=== PATIENT | female | born 1995 | race Two or more races ===

== ENCOUNTER 2024-09-23 23:58 | Emergency (ER) | payer OTHER ==
[~2024-09-23] VITALS: Ht 154.9 cm; Wt 47.6 kg
[2024-09-24] MEDS ORDERED: 0.9 % SODIUM CHLORIDE 1,000 ML IV STA (01:26)
[2024-09-24 01:59] LABS: HEMATOCRIT 33.4 % (36.0-45.00); HEMOGLOBIN 11.4 g/dL (12.0-15.00); MEAN CELL VOLUME 92.2 fL (80.00-100.00); MEAN CORPUSCULAR HEMOGLOBIN 31.5 pg (27.00-32.0); MEAN CORPUSCULAR HGB CONC 34.2 g/dl (32.0-36.0); PLATELET COUNT 221 K/uL (150-450); RED BLOOD COUNT 3.62 M/uL (4.00-6.00); RED CELL DISTRIBUTION WIDTH 13.7 % (11.5-14.5)
[2024-09-24 02:21] LABS: CREATININE SERUM 0.42 mg/dL (0.55-1.02); GFR 179.65; POTASSIUM 3.24 mEq/L (3.5-5.1)
== END 2024-09-24 05:33 | disposition home or self-care (01) ==
LOC: ER 23:59
DX: O20.9 Hemorrhage in early pregnancy, unspecified (principal); Z3A.12 12 weeks gestation of pregnancy

== ENCOUNTER 2025-03-31 13:30 | Inpatient (IN) | payer OTHER ==
[~2025-03-31] VITALS: Ht 154.9 cm; Wt 73.5 kg
[2025-04-05] MEDS ORDERED: PRENATAL MULTI1 EAC3 PO (05:49)
[2025-04-05] MEDS ORDERED: CLARITIN10 M1 (05:49)
[2025-04-05] MEDS ORDERED: CLARITIN10 M1 PO (05:50)
[2025-04-05 06:09] VITALS: BP 137/81
[2025-04-05] MEDS ORDERED: OXYTOCIN 20 UNITS/500ML RL PIGGYBAG IV ONE (06:31)
[2025-04-05 06:37] LABS: URINE APPEARANCE Clear; URINE BILIRRUBIN Negative (NEGATIVE); URINE BLOOD Small; URINE COLOR Yellow; URINE GLUCOSE Negative (NEGATIVE); URINE KETONE Negative (NEGATIVE); URINE LEUKOCYTE Negative; URINE NITRATE Negative; URINE PROTEIN >=1000 (NEGATIVE); URINE UROBILINOGEN 0.2 E.U./dl
[2025-04-05 06:41] LABS: URINE BACTERIA 1748.2 uL (0.0-1933); URINE CAST 3.95 uL (0.0-1.40); URINE EPITHELIAL CELLS 35.5 uL (0.0-38.8); URINE RBC 20.8 uL (0.0-20.8); URINE WBC 39.5 uL (0.0-23.2)
[2025-04-05] MEDS ORDERED: OXYTOCIN 500 ML IV SCH (06:45)
[2025-04-05] MEDS ORDERED: RINGERS SOLUTION,LACTATED 1,000 ML IV SCH (06:45)
[2025-04-05 06:46] LABS: BASO % 0.3 % (0.1-1.2); EOS # 0.55 (0.04-0.54); EOS % 6.1 % (0.7-7.0); LYMPH # 1.47 (1.18-3.74); LYMPH % 16.4 % (19.3-53.1); MEAN PLATELET VOLUME 14.10 fl (9.4-12.4); MONO # 0.79 (0.24-0.82); MONO % 8.8 % (4.7-12.5); NEUT # 6.09 (1.56-6.13); NEUT % 68.1 % (34.0-71.1); RED CELL DISTRIBUTION WIDTH 14.7 % (11.6-14.4)
[2025-04-05 07:08] LABS: INR < 0.93
[2025-04-05 07:24] LABS: ALT/SGPT 22.0 U/L (12-78); AST/SGOT 26.0 U/L (15-37); BILIRUBIN TOTAL 0.16 mg/dL (0.3-1.2); BUN CREA RATIO 21.0 (7.0-25.0); CREATININE SERUM 0.62 mg/dL (0.55-1.02); GFR 114.62; GLOBULINA 3.3 G/DL (2.4-3.5); GLUCOSE FASTING 78.0 mg/dL (65-100); OSMOLALITY SERUM 280.0 MOSM/KG (275-295)
[2025-04-05 07:46] VITALS: BP 144/84
[2025-04-05] MEDS ORDERED: MORPHINE SULFATE 4 MG/ML CARTRIDGE IV STA (08:15)
[2025-04-05 11:47] VITALS: BP 142/75
[2025-04-05 12:25] VITALS: BP 144/79
[2025-04-05 15:38] VITALS: BP 128/72
[2025-04-05] MEDS ORDERED: CHLORHEXIDINE GLUCONATE 120 ML BOTTLE TOP ONE ×2 (17:10→18:15)
[2025-04-05] MEDS ORDERED: ERYTHROMYCIN BASE OPHT 1GM EACH TUBE OP ONE ×2 (17:10→18:15)
[2025-04-05] MEDS ORDERED: OXYTOCIN 20 UNITS/1000ML RL PIGGYBAG IV ONE (17:10)
[2025-04-05] MEDS ORDERED: LIDOCAINE HCL 1% 10ML VIAL ONE (17:11)
[2025-04-05] MEDS ORDERED: ACETAMINOPHEN 500 MG GEL..CAP PO PRN (18:15)
[2025-04-05] MEDS ORDERED: LIDOCAINE HCL 1% 10ML VIAL IJ ONE (18:15)
[2025-04-05] MEDS ORDERED: OXYTOCIN 1,000 ML IV SCH (18:15)
[2025-04-05 22:00] VITALS: BP 145/83
[2025-04-06 02:31] VITALS: BP 135/85
[2025-04-06 06:19] LABS: BASO % 0.2 % (0.1-1.2); EOS # 0.01 (0.04-0.54); EOS % 0.0 % (0.7-7.0); LYMPH # 0.97 (1.18-3.74); LYMPH % 4.6 % (19.3-53.1); MEAN PLATELET VOLUME 14.00 fl (9.4-12.4); MONO # 1.44 (0.24-0.82); MONO % 6.8 % (4.7-12.5); NEUT # 18.56 (1.56-6.13); NEUT % 87.8 % (34.0-71.1); RED CELL DISTRIBUTION WIDTH 14.9 % (11.6-14.4)
[2025-04-06 08:15] VITALS: BP 141/87
[2025-04-06] MEDS ORDERED: HYDROCORTISONE 2.5% 30 GM TUBE RECTAL SCH (09:00)
[2025-04-06] MEDS ORDERED: BENZOCAINE/MENTHOL 90 ML BOTTLE TOP SCH (09:00)
[2025-04-06 16:00] VITALS: BP 140/70
[2025-04-06] MEDS ORDERED: OxyCODONE HCL 5 MG TABLET (ROXICODONE) PO ONE (17:30)
[2025-04-07 02:33] VITALS: BP 160/100
[2025-04-07 07:20] VITALS: BP 160/100
[2025-04-07] MEDS ORDERED: MAGNESIUM SULFATE IN WATER 100 ML IV SCH (07:45)
[2025-04-07] MEDS ORDERED: RINGERS SOLUTION,LACTATED 1,000 ML IV SCH (07:45)
[2025-04-07] MEDS ORDERED: MAGNESIUM SULFATE IN WATER 500 ML IV SCH (07:45)
[2025-04-07] MEDS ORDERED: LABETALOL HCL 200 MG TABLET PO SCH (09:00)
[2025-04-07 10:39] LABS: URINE APPEARANCE Clear; URINE BILIRRUBIN Negative (NEGATIVE); URINE BLOOD Large; URINE COLOR Yellow; URINE GLUCOSE Negative (NEGATIVE); URINE KETONE Negative (NEGATIVE); URINE LEUKOCYTE Small; URINE NITRATE Negative; URINE UROBILINOGEN 0.2 E.U./dl
[2025-04-07 10:43] LABS: BASO % 0.3 % (0.1-1.2); EOS # 0.41 (0.04-0.54); EOS % 2.6 % (0.7-7.0); LYMPH # 1.24 (1.18-3.74); LYMPH % 8.0 % (19.3-53.1); MEAN PLATELET VOLUME 13.30 fl (9.4-12.4); MONO # 0.69 (0.24-0.82); MONO % 4.4 % (4.7-12.5); NEUT # 13.07 (1.56-6.13); NEUT % 84.2 % (34.0-71.1); RED CELL DISTRIBUTION WIDTH 15.5 % (11.6-14.4); URINE BACTERIA 158.3 uL (0.0-1933); URINE EPITHELIAL CELLS 33.5 uL (0.0-38.8); URINE RBC 864.7 uL (0.0-20.8); URINE WBC 452.7 uL (0.0-23.2)
[2025-04-07 11:08] LABS: INR < 0.93
[2025-04-07 11:21] LABS: URINE CAST 1.02 uL (0.0-1.40); URINE PROTEIN 300 (NEGATIVE)
[2025-04-07 11:39] LABS: ALT/SGPT 34.0 U/L (12-78); AST/SGOT 43.0 U/L (15-37); BILIRUBIN TOTAL 0.2 mg/dL (0.3-1.2); BUN CREA RATIO 18.0 (7.0-25.0); CREATININE SERUM 0.73 mg/dL (0.55-1.02); GFR 94.93; GLOBULINA 3.5 G/DL (2.4-3.5); GLUCOSE FASTING 114.0 mg/dL (65-100); OSMOLALITY SERUM 284.0 MOSM/KG (275-295)
[2025-04-07 17:39] VITALS: BP 145/90
[2025-04-08 01:28] VITALS: BP 140/90
[2025-04-08 08:00] VITALS: BP 158/93
[2025-04-08 16:00] VITALS: BP 145/80
[2025-04-09 00:48] VITALS: BP 140/90
[2025-04-09 10:00] VITALS: BP 140/80
[2025-04-09 17:30] VITALS: BP 142/80
[2025-04-09 17:42] LABS: URINE APPEARANCE Clear; URINE BILIRRUBIN Negative (NEGATIVE); URINE BLOOD Moderate; URINE COLOR Yellow; URINE GLUCOSE Negative (NEGATIVE); URINE KETONE Negative (NEGATIVE); URINE LEUKOCYTE Negative; URINE NITRATE Negative; URINE UROBILINOGEN 0.2 E.U./dl
[2025-04-09 17:43] LABS: URINE BACTERIA 45.6 uL (0.0-1933); URINE EPITHELIAL CELLS 6.1 uL (0.0-38.8); URINE RBC 162.2 uL (0.0-20.8); URINE WBC 49.6 uL (0.0-23.2)
[2025-04-09 17:47] LABS: URINE CAST 0.00 uL (0.0-1.40); URINE PROTEIN 300 (NEGATIVE)
[2025-04-09 18:08] LABS: BASO % 0.3 % (0.1-1.2); EOS # 1.02 (0.04-0.54); EOS % 8.7 % (0.7-7.0); LYMPH # 1.41 (1.18-3.74); LYMPH % 12.0 % (19.3-53.1); MEAN PLATELET VOLUME 11.80 fl (9.4-12.4); MONO # 0.84 (0.24-0.82); MONO % 7.1 % (4.7-12.5); NEUT # 8.44 (1.56-6.13); NEUT % 71.7 % (34.0-71.1); RED CELL DISTRIBUTION WIDTH 14.9 % (11.6-14.4)
[2025-04-09 18:27] LABS: ALT/SGPT 37 U/L (12-78); AST/SGOT 28 U/L (15-37)
== END 2025-04-09 20:38 | disposition home or self-care (01) | DRG 807 ==
LOC: LDR 04-04 13:30 → OB/GYN 04-05 18:15
PROVIDERS: Obstetrics & Gynecology; ADMIT Specialist; ATTEND Specialist
PROC: 10E0XZZ Delivery of Products of Conception, External Approach (ICD-10-PCS; principal; 2025-04-05)
PROC: 0W8NXZZ Division of Female Perineum, External Approach (ICD-10-PCS; 2025-04-05)
PROC: 3E033VJ Introduction of Other Hormone into Peripheral Vein, Percutaneous Approach (ICD-10-PCS; 2025-04-05)
PROC: 4A1HXCZ Monitoring of Products of Conception, Cardiac Rate, External Approach (ICD-10-PCS; 2025-04-05)
DX: O48.0 Post-term pregnancy (principal); O14.94 Unspecified pre-eclampsia, complicating childbirth; Z37.0 Single live birth; Z3A.40 40 weeks gestation of pregnancy